=== PATIENT | male | born 1955 | race Caucasian/White ===

== ENCOUNTER 2020-07-10 10:36 | Emergency (ER) | payer MEDICARE, BC, SELFPAY ==
--- NOTE | ~2020-07-10 | XR_ITS ---
XR finger 2nd RT min 2V 07/10/2020 10:53 Indication: Laceration to the tip of the right second finger. Procedure: 4 views right second finger Comparison: No prior studies for comparison. Findings: There is amputation of the second finger at the distal phalanx. No foreign bodies identifie d. No other fracture identified. Impression: 1: Amputation of distal segment of the right second distal phalanx and overlying soft tissues. Reviewed, dictated and finalized at location A. Impression: 1: Amputation of distal segment of the right second distal phalanx and overlyin g soft tissues.
--- NOTE | 2020-07-10 10:46 | ED.WOUNDLAC ---
HPI - Wound/Laceration General Chief Complaint: Wound/Laceration <Rafia Martinez PA-C - Last Filed: 07/10/20 12:36> Stated Complaint: cut tip of finger off <Rafia Martinez PA-C - Last Filed: 07/10/20 12:36> Time Seen by Provider: 07/10/20 10:41 <Rafia Martinez PA-C - Last Filed: 07/10/20 12:36> Source: patient <Rafia Martinez PA-C - Last Filed: 07/10/20 12:36> Mode of arrival: ambulatory <Rafia Martinez PA-C - Last Filed: 07/10/20 12:36> Limitations: no limitations <Rafia Martinez PA-C - Last Filed: 07/10/20 12:36> History of Present Illness HPI narrative: This is a 64-year-old male that presents to the emergency department for right second finger injury sustained just prior to arrival. Reports he cut the tip of his finger off with a wood splitter. Reports bleeding and pain to the area. He is unsure of his last tetanus vaccine. Denies decreased range of motion or numbness. <Rafia Martinez PA-C - Last Filed: 07/10/20 12:36> Related Data Allergies/Adverse Reactions: Allergies Allergy/AdvReac Type Severity Reaction Status Date / Time No Known Allergies Allergy Unknown Verified 07/10/20 10:48 <Rafia Martinez PA-C - Last Filed: 07/10/20 12:36> Review of Systems Review of Systems: Narrative: CONSTITUTIONAL: Denies fever SKIN: Reports laceration NEUROLOGIC: Denies numbness <Rafia Martinez PA-C - Last Filed: 07/10/20 12:36> All systems reviewed & are unremarkable except as noted in HPI and below <Rafia Martinez PA-C - Last Filed: 07/10/20 12:36> [facility] Past Medical History Medical History: Medical History (Updated 07/10/20 @ 12:33 by Rafia Martinez PA-C) History of chronic bronchitis <Rafia Martinez PA-C - Last Filed: 07/10/20 12:36> Social History Social History: Social History (Updated 07/10/20 @ 10:48 by Rafia Martinez PA-C) Substance use: never <Rafia Martinez PA-C - Last Filed: 07/10/20 12:36> Exam Narrative: Exam Narrative: GENERAL: Well-appearing, well-nourished, and in no acute distress. HEAD: Normocephalic, atraumatic. EYES: EOMI. EXTREMITIES: Normal range of motion. 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 Normal sensation in the finger otherwise SKIN: Warm, dry, no rash. NEURO: No focal deficits. Alert and oriented x3. PSYCH: Normal mood and affect <Rafia Martinez PA-C - Last Filed: 07/10/20 12:36> Course Consultations Consultation #1: Spoke with Dr. Barnhart about patient and workup who reports there is no good way to re-attach these types of injuries. Would not be successful. Patient was bandaged and will follow up in clinic on Sunday. <Rafia Martinez PA-C - Last Filed: 07/10/20 12:36> Date: 07/10/20 <Rafia Martinez PA-C - Last Filed: 07/10/20 12:36> Time: 12:32 <Rafia Martinez PA-C - Last Filed: 07/10/20 12:36> Vital Signs Vital signs: Vital Signs Temperature 36.8 C 07/10/20 10:49 Pulse Rate 60 07/10/20 10:49 Respiratory Rate 16 07/10/20 10:49 Blood Pressure 128/95 H 07/10/20 10:49 Pulse Oximetry 97 07/10/20 10:49 Temperature 36.8 C 07/10/20 10:49 Pulse Rate 56 L 07/10/20 12:38 Respiratory Rate 14 07/10/20 12:38 Blood Pressure 139/81 07/10/20 12:38 Pulse Oximetry 98 07/10/20 12:38 <Rafia Martinez PA-C - Last Filed: 07/10/20 12:36> Vital Signs Temperature 36.8 C 07/10/20 10:49 Pulse Rate 60 07/10/20 10:49 Respiratory Rate 16 07/10/20 10:49 Blood Pressure 128/95 H 07/10/20 10:49 Pulse Oximetry 97 07/10/20 10:49 Temperature 36.8 C 07/10/20 10:49 Pulse Rate 56 L 07/10/20 12:38 Respiratory Rate 14 07/10/20 12:38 Blood Pressure 139/81 07/10/20 12:38 Pulse Oximetry 98 07/10/20 12:38 <Barrington Caraballo MD - Last Filed: 07/10/20 18:18> Procedures Laceration Laceration 1: Date: 07/10/20 <Rafia Martinez PA-C - Last Filed: 07/10
[2020-07-10 10:49] VITALS: BP 128/95; PULSE 60; RESP 16; TEMP 36.8; O2SAT 97
[2020-07-10] MEDS: HYDROcodone/acetaminophen (*CRX) 5-325 MG TABLET 1 TAB PO (11:04)
[2020-07-10] MEDS: TETANUS,DIPHTHERIA,AC PERTUSSIS ADULT (0.5 ML) BOOSTRIX IM (11:04)
[2020-07-10] MEDS: ceFAZolin SODIUM 1 GM VIAL IM (11:07)
[2020-07-10 12:00] VITALS: BP 135/84; PULSE 62; RESP 20; O2SAT 100
[2020-07-10 12:38] VITALS: BP 139/81; PULSE 56; RESP 14; O2SAT 98
== END 2020-07-10 12:43 | disposition home or self-care (01) ==
PROVIDERS: Emergency Provider Emergency Medicine
DX: S68.620A Partial traumatic transphalangeal amputation of right index finger, initial encounter (principal); Z23 Encounter for immunization; J42 Unspecified chronic bronchitis; W27.8XXA Contact with other nonpowered hand tool, initial encounter
CPT/HCPCS: 73140; 90471; 90715; 96372; 99283; A9270; J0690